=== PATIENT | male | born 1955 | race Caucasian/White ===

== ENCOUNTER 2017-07-30 18:13 | Inpatient (IN) | payer OTHER ==
[~2017-07-30] VITALS: Ht 177.8 cm; Wt 90.7 kg
[~2017-07-30 18:13] MED LIST: DILANTIN100 MG PO; ZESTRIL10 MG PO
[2017-07-30 19:18] LABS: EOSINOPHIL (%) 0.7 % (0-5); EOSINOPHIL COUNT 0.1 K/uL (0-0.3); IMMATURE GRANULOCYTE (%) 0.8 % (0.0-0.7); IMMATURE GRANULOCYTE COUNT 0.1 K/uL; INSTRUMENT ABS NEUTROPHIL CT 4.9 K/uL; LYMPHOCYTE COUNT 2.8 K/uL (1.0-2.8); MCH 32.2 PG (29.0-34.0); MCHC 33.7 G/DL (30.0-36.0); MCV 95.8 FL (86-99); MEAN PLAT.VOLUME 9.9 uM^3 (9.0-12.4); MONOCYTE (%) 8.5 % (3-12); MONOCYTE COUNT 0.7 K/uL (0-0.8); NEUTROPHIL (%) 56.9 % (45-76); NEUTROPHIL COUNT 4.9 K/uL (1.8-6.4); PLATELET COUNT 204 K/uL (156-360); RBC DIS.WIDTH-CV 12.3 % (11.8-14.6); RBC DIS.WIDTH-SD 43.4 % (39-53); RED BLOOD COUNT 4.28 M/uL (4.00-5.50); WHITE BLOOD COUNT 8.7 K/uL (4.1-10.2)
[2017-07-30 19:26] LABS: CHLORIDE 106 mEq/L (99-109); POTASSIUM 4.2 mEq/L (3.7-5.4); SODIUM 140 mEq/L (136-147)
[2017-07-30 19:27] LABS: MAGNESIUM 2.1 mg/dL (1.3-2.7)
[2017-07-30 19:28] LABS: GLUCOSE 96 mg/dL (70-99)
[2017-07-30 19:29] LABS: ANION GAP 10 MEQ/L (2-14); INTER. NORMALIZED RATIO 0.9; PROTHROMBIN TIME 9.8 SEC (10.2-12.9)
[2017-07-30 19:31] LABS: D-DIMER ELISA < 150.00 ng/mLDDU (<230)
[2017-07-30 19:32] LABS: GFR ESTIMATE (CALCULATED) > 59 mL/min/; PTT 27.1 SEC (25-37)
[2017-07-30 19:33] LABS: UREA NITROGEN (BUN) 18 mg/dL (9-23)
[2017-07-30 19:38] LABS: TROP-I INTERPRETATION NEGATIVE; TROPONIN-I 0.01 ng/mL (0.0-0.30)
[2017-07-30] MEDS ORDERED: PHENYTOIN SODI100 M1 PO (20:23)
[2017-07-30] MEDS ORDERED: SIMVASTATIN20 MG PO (20:25)
[2017-07-30] MEDS ORDERED: FLAX OIL1000 MG PO (20:25)
[2017-07-30] MEDS ORDERED: FISH OIL 1,0001 EAC7 PO (20:25)
[2017-07-30] MEDS ORDERED: ASPIR 8181 M1 PO (20:26)
[2017-07-31 02:45] LABS: TROP-I INTERPRETATION NEGATIVE; TROPONIN-I 0.01 ng/mL (0.0-0.30)
[2017-07-31 05:15] LABS: HEMATOCRIT 38.3 % (38.0-50.0); MCH 32.3 PG (29.0-34.0); MCHC 33.7 G/DL (30.0-36.0); MEAN PLAT.VOLUME 9.8 uM^3 (9.0-12.4); PLATELET COUNT 172 K/uL (156-360); RBC DIS.WIDTH-CV 12.4 % (11.8-14.6); RBC DIS.WIDTH-SD 44.1 % (39-53); RED BLOOD COUNT 3.99 M/uL (4.00-5.50); WHITE BLOOD COUNT 6.4 K/uL (4.1-10.2)
[2017-07-31 05:23] LABS: CHLORIDE 109 mEq/L (99-109); POTASSIUM 4.2 mEq/L (3.7-5.4); SODIUM 141 mEq/L (136-147)
[2017-07-31 05:25] LABS: GLUCOSE 117 mg/dL (70-99)
[2017-07-31 05:26] LABS: ANION GAP 9 MEQ/L (2-14)
[2017-07-31 05:27] LABS: PROTHROMBIN TIME 11.3 SEC (10.2-12.9); TOTAL BILIRUBIN 0.3 mg/dL (0.0-1.0)
[2017-07-31 05:29] LABS: ALKALINE PHOSPHATASE 93 IU/L (3-129); GFR ESTIMATE (CALCULATED) > 59 mL/min/
[2017-07-31 05:30] LABS: UREA NITROGEN (BUN) 15 mg/dL (9-23)
[2017-07-31 05:42] LABS: PTT 85.6 SEC (25-37)
[2017-07-31 08:10] VITALS: BP 128/86
[2017-07-31 08:42] LABS: TROP-I INTERPRETATION NEGATIVE; TROPONIN-I < 0.01 ng/mL (0.0-0.30)
[2017-07-31 11:20] VITALS: BP 120/84; BP 142/59
[2017-07-31] MEDS ORDERED: ELIQUIS5 MG PO (12:15)
[2017-07-31] MEDS ORDERED: DILTIAZEM 24HR180 MG PO (12:16)
== END 2017-07-31 13:45 | disposition home or self-care (01) | DRG 310 ==
LOC: EME 18:13 → EDOF 20:39 → ENRESERV 20:44 → EDOF 07-31 11:56 → ENRESERV 07-31 12:07 → CANRESERV 07-31 12:07 → EDOF 07-31 13:45
PROVIDERS: Emergency Medicine; Internal Medicine
DX: I48.91 Unspecified atrial fibrillation (principal); I48.92 Unspecified atrial flutter; I10 Essential (primary) hypertension; E78.00 Pure hypercholesterolemia, unspecified; G40.909 Epilepsy, unspecified, not intractable, without status epilepticus; E78.5 Hyperlipidemia, unspecified; F17.200 Nicotine dependence, unspecified, uncomplicated; E66.9 Obesity, unspecified; Z68.28 Body mass index [BMI] 28.0-28.9, adult; Z79.82 Long term (current) use of aspirin
CPT/HCPCS: 71010; 80048; 80053; 80185; 83735; 84443; 84484; 85025; 85027; 85379; 85610; 85730; 93005; 99281; 99285; J7050

== ENCOUNTER 2017-09-24 14:43 | Emergency (ER) | payer OTHER ==
[~2017-09-24] VITALS: Ht 177.8 cm; Wt 86.3 kg
[~2017-09-24 14:43] MED LIST changes: +ASPIR 8181 M1 PO; +DILTIAZEM 24HR180 MG PO; +ELIQUIS5 MG PO; +FISH OIL 1,0001 EAC7 PO; +FLAX OIL1000 MG PO; +PHENYTOIN SODI100 M1 PO; +SIMVASTATIN20 MG PO
[2017-09-24] MEDS ORDERED: PREDNISONE20 MG PO (16:47)
[2017-09-24] MEDS ORDERED: PERCOCET 5/31 TABLET PO (16:47)
[2017-09-24 17:04] VITALS: BP 129/100
== END 2017-09-24 17:05 | disposition home or self-care (01) ==
LOC: EME 14:43
DX: S83.92XA Sprain of unspecified site of left knee, initial encounter (principal); X50.9XXA Other and unspecified overexertion or strenuous movements or postures, initial encounter; Y93.41 Activity, dancing; E78.5 Hyperlipidemia, unspecified; I10 Essential (primary) hypertension; R56.9 Unspecified convulsions; Z72.0 Tobacco use
CPT/HCPCS: 99281; 99283; J7512

== ENCOUNTER 2018-01-20 14:50 | Inpatient (IN) | payer OTHER ==
[~2018-01-20] VITALS: Ht 177.8 cm; Wt 88.5 kg
[~2018-01-20 14:50] MED LIST changes: +PERCOCET 5/31 TABLET PO; +PREDNISONE20 MG PO
[2018-01-20 15:11] LABS: BASOPHIL (%) 0.1 % (0-1); EOSINOPHIL (%) 0.3 % (0-5); HEMATOCRIT 40.6 % (38.0-50.0); HEMOGLOBIN 13.9 G/DL (12.5-16.6); LYMPHOCYTE (%) 20.3 % (15-42); MCH 33.4 PG (29.0-34.0); MCHC 34.2 G/DL (30.0-36.0); MCV 97.6 FL (86-99); MONOCYTE (%) 14.8 % (3-12); MONOCYTE COUNT 1.5 K/uL (0-0.8); NEUTROPHIL (%) 63.5 % (45-76); NEUTROPHIL COUNT 6.3 K/uL (1.8-6.4); PLATELET COUNT 178 K/uL (156-360); RBC DIS.WIDTH-CV 12.7 % (11.8-14.6); RBC DIS.WIDTH-SD 44.9 % (39-53); RED BLOOD COUNT 4.16 M/uL (4.00-5.50); WHITE BLOOD COUNT 9.9 K/uL (4.1-10.2)
[2018-01-20 15:21] LABS: CHLORIDE 104 mEq/L (99-109); SODIUM 137 mEq/L (136-147)
[2018-01-20 15:22] LABS: PTT 25.1 SEC (25-37)
[2018-01-20 15:23] LABS: GLUCOSE 107 mg/dL (70-99)
[2018-01-20 15:26] LABS: CREATININE 0.8 mg/dL (0.6-1.3); GFR ESTIMATE (CALCULATED) > 59 mL/min/ (58.99-99999)
[2018-01-20 15:27] LABS: UREA NITROGEN (BUN) 14 mg/dL (9-23)
[2018-01-20 15:33] LABS: TROP-I INTERPRETATION NEGATIVE; TROPONIN-I 0.01 ng/mL (0.0-0.30)
[2018-01-20] MEDS ORDERED: ELIQUIS5 MG PO (17:27)
[2018-01-20] MEDS ORDERED: CARTIA XT180 MG PO (17:28)
[2018-01-20] MEDS ORDERED: DILANTIN100 MG PO (17:29)
[2018-01-20] MEDS ORDERED: LO-DOSE ASPIRIN81 M1 PO (17:30)
[2018-01-20 22:55] LABS: TROP-I INTERPRETATION NEGATIVE; TROPONIN-I < 0.01 ng/mL (0.0-0.30)
[2018-01-21 13:00] VITALS: BP 140/59
[2018-01-21 17:15] VITALS: BP 127/75
[2018-01-21 19:18] VITALS: BP 104/60
[2018-01-21 22:44] VITALS: BP 118/68
[2018-01-22 02:00] LABS: CHLORIDE 106 mEq/L (99-109); POTASSIUM 3.9 mEq/L (3.7-5.4); SODIUM 138 mEq/L (136-147)
[2018-01-22 02:01] LABS: MAGNESIUM 2.1 mg/dL (1.3-2.7)
[2018-01-22 02:02] LABS: GLUCOSE 102 mg/dL (70-99)
[2018-01-22 02:06] LABS: CREATININE 0.8 mg/dL (0.6-1.3); GFR ESTIMATE (CALCULATED) > 59 mL/min/ (58.99-99999)
[2018-01-22 02:07] LABS: UREA NITROGEN (BUN) 12 mg/dL (9-23)
[2018-01-22 04:00] VITALS: BP 118/81
[2018-01-22 07:30] VITALS: BP 121/74
[2018-01-22 12:00] VITALS: BP 115/67
[2018-01-22 18:12] VITALS: BP 120/70
[2018-01-22 19:54] VITALS: BP 100/60
[2018-01-23 00:07] VITALS: BP 122/88
[2018-01-23 04:07] VITALS: BP 106/70
[2018-01-23 05:34] LABS: BASOPHIL (%) 0.5 % (0-1); EOSINOPHIL (%) 1.7 % (0-5); EOSINOPHIL COUNT 0.1 K/uL (0-0.3); HEMATOCRIT 38.9 % (38.0-50.0); HEMOGLOBIN 12.9 G/DL (12.5-16.6); IMMATURE GRANULOCYTE (%) 1.4 % (0.0-0.7); LYMPHOCYTE (%) 30.8 % (15-42); MCH 32.4 PG (29.0-34.0); MCHC 33.2 G/DL (30.0-36.0); MCV 97.7 FL (86-99); MONOCYTE (%) 12.9 % (3-12); MONOCYTE COUNT 0.8 K/uL (0-0.8); NEUTROPHIL (%) 52.7 % (45-76); NEUTROPHIL COUNT 3.4 K/uL (1.8-6.4); PLATELET COUNT 181 K/uL (156-360); RBC DIS.WIDTH-CV 12.5 % (11.8-14.6); RBC DIS.WIDTH-SD 44.9 % (39-53); RED BLOOD COUNT 3.98 M/uL (4.00-5.50); WHITE BLOOD COUNT 6.5 K/uL (4.1-10.2)
[2018-01-23 05:58] LABS: CHLORIDE 107 MEQ/L (99-109); CREATININE 0.9 MG/DL (0.6-1.3); GFR ESTIMATE (CALCULATED) > 59 mL/min/ (58.99-99999); GLUCOSE 103 mg/dL (70-99); POTASSIUM 4.5 MEQ/L (3.7-5.4); SODIUM 139 MEQ/L (136-147); UREA NITROGEN (BUN) 12 mg/dL (9-23)
[2018-01-23 07:35] VITALS: BP 116/74
[2018-01-23 12:15] VITALS: BP 117/74
[2018-01-23 14:43] VITALS: BP 123/75
[2018-01-23] MEDS ORDERED: CORDARONE200 MG PO (14:53)
[2018-01-23] MEDS ORDERED: CARDIZEM CD,CA180 MG PO (14:53)
[2018-01-23] MEDS ORDERED: ELIQUIS5 MG PO (14:55)
== END 2018-01-23 16:01 | disposition home or self-care (01) | DRG 309 ==
LOC: EME → EDBD 14:50 → 4EAST 21:03 → EDOF 21:03 → ENRESERV 21:05 → 4EAST 01-21 12:31
PROVIDERS: Emergency Medicine; Hospitalist
PROC: 5A2204Z Restoration of Cardiac Rhythm, Single (ICD-10-PCS; principal; 2018-01-23)
DX: I48.92 Unspecified atrial flutter (principal); I48.91 Unspecified atrial fibrillation; I44.4 Left anterior fascicular block; I45.10 Unspecified right bundle-branch block; I95.9 Hypotension, unspecified; R00.0 Tachycardia, unspecified; I10 Essential (primary) hypertension; G40.509 Epileptic seizures related to external causes, not intractable, without status epilepticus; E78.5 Hyperlipidemia, unspecified; F10.10 Alcohol abuse, uncomplicated; F17.210 Nicotine dependence, cigarettes, uncomplicated; S06.9X0S Unspecified intracranial injury without loss of consciousness, sequela; Z79.01 Long term (current) use of anticoagulants; Z91.19 Patient's noncompliance with other medical treatment and regimen
CPT/HCPCS: 71045; 71275; 80048; 83735; 84484; 85025; 85610; 85730; 93005; 93312; 94010; 94799; 99202; 99281; 99285; J0153; J1160; J2250; J7030